=== PATIENT | male | born 1945 | race Caucasian/White ===

== ENCOUNTER 2016-09-12 09:57 | Emergency (ER) | payer MEDICARE, OTHER ==
[2016-09-12] MEDS ORDERED: OPTIRAY 350 100 ML VIAL HMH IV ONE (09:58)
[2016-09-12] MEDS ORDERED: SODIUM CHLORIDE 0.9% 1,000 ML ONE (13:59)
== END 2016-09-12 18:08 | disposition home or self-care (01) ==
LOC: ER 09:57
DX: N20.1 Calculus of ureter (principal); R31.9 Hematuria, unspecified; D64.9 Anemia, unspecified; I10 Essential (primary) hypertension; E11.9 Type 2 diabetes mellitus without complications; Z79.899 Other long term (current) drug therapy; Z79.01 Long term (current) use of anticoagulants
CPT/HCPCS: 36415; 74177; 80053; 81001; 85025; 85610; 85730; 87088; 96360; 99285; Q9967